=== PATIENT | female | born 1985 | race Hispanic/Latino ===

== ENCOUNTER 2018-01-19 18:49 | Emergency (ER) | payer OTHER ==
[2018-01-19] MEDS ORDERED: Ketorolac Tromethamine 30 MG/ML VIAL ONE (19:15)
--- NOTE | 2018-01-19 21:01 | RAD ---
THREE VIEWS LUMBAR SPINE: 01/19/18 HISTORY: Back pain. AP, lateral and cone down view lumbar spine demonstrates mild dextroscoliosis centered at the L3 leve l. No acute lumbar spine fractures or bony lesions seen. Vertebral bodies are intact. Disc spaces are well maintained. IMPRESSION: Mild L3 dextroscoliosis. POS: JANELLE
--- NOTE | 2018-01-19 21:37 | RAD ---
THREE VIEWS CERVICAL SPINE: 01/19/18 HISTORY: Back pain. AP, lateral and open mouth odontoid views cervical spine obtained. Three views cervical spine demonstrate cervical spinal alignment to be within normal limits. No evide nce of acute fractures, subluxations or bony lesions seen. No evidence of disc space height loss seen . Osseous structures are intact. IMPRESSION: Normal three views cervical spine. The patient would not remove her earrings. The metallic artifact did decrease the sensitivity for det ection of the C1-2 cervical spine region on the lateral views. POS: JANELLE
== END 2018-01-19 20:06 | disposition home or self-care (01) ==
LOC: ERS 18:49
DX: S39.012A Strain of muscle, fascia and tendon of lower back, initial encounter (principal); X58.XXXA Exposure to other specified factors, initial encounter
CPT/HCPCS: 72040; 72100; 96372; J1885